=== PATIENT | female | born 1990 | race Two or more races ===

== ENCOUNTER 2017-03-18 09:38 | Emergency (ER) | payer OTHER ==
[~2017-03-18] VITALS: Ht 160 cm; Wt 85.7 kg
[2017-03-18 10:13] LABS: URINE SOURCE CLEAN CATCH
[2017-03-18 10:23] LABS: CULTURE INDICATED? YES; U HYALINE CASTS AUWI 0-2 /[LPF]; URBCS1 AUWI 0-2 /[HPF] (0-2); URINE APPEARANCE CLOUDY; URINE BACTERIA AUWI 2+ (NEGATIVE); URINE BILIRUBIN NEG (NEG); URINE BLOOD NEG (NEG); URINE COLOR YELLOW; URINE GLUCOSE NEG (NEG); URINE KETONE NEG (NEG); URINE LEUKOCYTE ESTERASE TRACE (NEG); URINE NITRATE NEG (NEG); URINE PROTEIN NEG (NEG); URINE SPECIFIC GRAVITY 1.013 (1.003-1.035); URINE SQUAMOUS EPITHELIAL CELL MOD /[HPF]; URINE UROBILINOGEN 0.2 MG/DL (NEG)
[2017-03-20 22:42] LABS: CHLAMYDIA TRACH Detected (Not Detected); N GONOR Not Detected (Not Detected)
== END 2017-03-18 11:08 | disposition home or self-care (01) ==
LOC: CED 09:38 → CFTX 09:38
PROVIDERS: Nurse Practitioner
DX: N76.0 Acute vaginitis (principal); F17.200 Nicotine dependence, unspecified, uncomplicated; Z90.89 Acquired absence of other organs
CPT/HCPCS: 81003; 84703; 87086; 87491; 87591; 87808; 87905; 99284